=== PATIENT | female | born 1975 ===

== ENCOUNTER 2018-09-18 21:04 | Emergency (ER) | payer SELFPAY ==
[~2018-09-18] VITALS: Ht 175.3 cm; Wt 111.4 kg
[2018-09-18 21:30] VITALS: Ht 175.3 cm; Wt 111.4 kg
[2018-09-18 22:16] LABS: BASOPHILS 0.5 % (0-2); HEMATOCRIT 31.1 % (36.0-48.0); HEMOGLOBIN 9.2 g/dL (12-16); IMMATURE GRANULOCYTES 0.3 % (0-5); LYMPHOCYTES 33.3 % (15-50); MCH 21.7 pg (26.0-34.0); MCHC 29.6 g/dL (31.0-37.0); MCV 73.5 fL (80.0-100.0); MEAN PLATELET VOLUME 9.4 fL (7.4-10.4); MONOCYTES 5.8 % (2-11); NEUTROPHILS 58.1 % (40-80); PLATELET COUNT 273 10x3/uL (130-400); RBC 4.23 10x6/uL (4.00-5.40); RDW 17.5 % (11.5-14.5); WBC 6.4 10x3/uL (4.8-10.8)
[2018-09-18 22:24] LABS: ALBUMIN 3.4 g/dL (3.4-5.0); ALKALINE PHOSPHATASE 65 U/L (46-116); ALT (SGPT) 47 U/L (10-68); BILIRUBIN - TOTAL 0.29 mg/dL (0.2-1.3); CALC OSMOLALITY 276 mosm/kg (275-300); CALCIUM 8.4 mg/dL (8.5-10.1); CARBON DIOXIDE 27.5 mmol/L (21.0-32.0); CHLORIDE - SERUM 104 mmol/L (98-107); CREATININE - SERUM 0.8 mg/dL (0.6-1.3); GLUCOSE 106 mg/dL (74-106); POTASSIUM - SERUM 3.6 mmol/L (3.5-5.1); PROTEIN - SERUM 7.6 g/dL (6.4-8.2); SODIUM 140 mmol/L (136-145); UREA NITROGEN 8 mg/dL (7-18); eGFR NON AFRICAN AMERICAN 82 mL/min (90-120)
[2018-09-18 22:27] LABS: APPEARANCE HAZY (CLEAR); BILIRUBIN NEGATIVE (NEGATIVE); COLOR YELLOW (YELLOW); GLUCOSE NEGATIVE (NEGATIVE); KETONE NEGATIVE (NEGATIVE); NITRITE NEGATIVE (NEGATIVE); PROTEIN NEGATIVE (NEGATIVE); SPECIFIC GRAVITY 1.015 (1.005-1.020); UROBILINOGEN NORMAL (NORMAL)
[2018-09-18 22:29] LABS: BACTERIA MODERATE /hpf (NONE SEEN); MUCUS <1+ /lpf (NONE SEEN); RED CELLS - URINE OCC /hpf (0-5)
[2018-09-18 22:54] LABS: HCG URINE NEGATIVE (NEGATIVE)
[2018-09-18] MEDS ORDERED: MACROBID100 MG PO (23:31)
[2018-09-18] MEDS ORDERED: FERROUS GLUCON324 MG PO (23:31)
[2018-09-19] MEDS ORDERED: PRINZIDE 20/12.1 TA1 PO (00:01)
[2018-09-19 00:50] VITALS: BP 149/81
== END 2018-09-19 00:50 | disposition home or self-care (01) ==
LOC: D.ER 21:04
PROVIDERS: Emergency Medicine
DX: G43.109 Migraine with aura, not intractable, without status migrainosus (principal); D50.9 Iron deficiency anemia, unspecified; N39.0 Urinary tract infection, site not specified